=== PATIENT | male | born 1995 | race Two or more races ===

== ENCOUNTER 2023-01-31 14:47 | Emergency (ER) | payer SELFPAY ==
[~2023-01-31] VITALS: Ht 172.7 cm; Wt 89.6 kg
[2023-01-31 15:31] VITALS: BP 135/77
[2023-01-31] MEDS ORDERED: IBUP800T27 PO (16:37)
[2023-01-31] MEDS ORDERED: IBUPROFEN 800 MG TAB PO ONE (16:45)
== END 2023-01-31 16:49 | disposition home or self-care (01) ==
LOC: ER 14:47
DX: S42.012A Anterior displaced fracture of sternal end of left clavicle, initial encounter for closed fracture (principal); W00.0XXA Fall on same level due to ice and snow, initial encounter; Y93.23 Activity, snow (alpine) (downhill) skiing, snowboarding, sledding, tobogganing and snow tubing; Y92.89 Other specified places as the place of occurrence of the external cause; Y99.8 Other external cause status
CPT/HCPCS: 29105; 73000